=== PATIENT | female | born 1940 | race Caucasian/White ===

== ENCOUNTER 2017-09-16 12:00 | Emergency (ER) | payer OTHER, MEDICARE ==
[~2017-09-16] VITALS: Ht 162.6 cm; Wt 84.4 kg
[~2017-09-16 12:00] MED LIST: CALTRATE 600 +1 EACH PO; COLACE100 M1 PO; DAILY MULTIPLE1 EACH PO; ELIQUIS5 M1 PO; FENOFIBRATE160 M1 PO; HYDROCHLOROTHIA25 M1 PO; KRILL OIL 1,001 EAC1 PO; LIPOFEN150 M1 PO; LYRICA50 M1 PO; METOPROLOL TART25 M1 PO; OMEPRAZOLE40 M1 PO; SENNA8.6 M3 PO; SYNTHROID125 MCG PO; TAMIFLU30 M1 PO; VITAMIN B122500 MC1 PO; VITAMIN D2000 UNI1 PO
--- NOTE | 2017-09-16 12:31 | ED GI/GU/ABDOMINAL COMPLAINT ---
History of Present Illness General Chief Complaint: General Adult Stated Complaint: RECTAL BLEEDING Source: patient Exam Limitations: no limitations Vital Signs & Intake/Output Vital Signs & Intake/Output Vital Signs Date Time Temp Pulse Resp B/P B/P Pulse O2 O2 Flow FiO2 Mean Ox Delivery Rate 09/16 1217 96.5 71 18 141/77 97 Room Air Room Air Allergies Coded Allergies: NSAIDS (Non-Steroidal Anti-Inflamma (Severe, MUSCLE CRAMPS 12/10/15) STATINS (Severe, SEVERE MUSCLE CRAMPS 07/22/12) venlafaxine (Severe, TREMORS, FLUSHES, BLURRED VISION 01/02/16) levofloxacin (UNKNOWN 12/10/15) lovastatin (UNKNOWN 12/10/15) moxifloxacin (UNKNOWN 12/10/15) Reconcile Medications Alendronate Sodium 70 MG TABLET 1 TAB PO QSUN BONE (Reported) in the morning, at least 30 minutes before the first food, beverage, or medication of the day Apixaban (Eliquis) 5 MG TABLET 1 TAB PO BID HEART HEALTH (Reported) Fenofibrate 160 MG TABLET 1 TAB PO DAILY CHOLESTEROL (Reported) Hydrochlorothiazide 25 MG TABLET 1 TAB PO DAILY WATER PILL (Reported) Levothyroxine Sodium (Synthroid) 125 MCG TABLET 0.5 TAB PO DAILY AC THYROID ( Reported) Metoprolol Tartrate 25 MG TABLET 1 TAB PO BID HEART (Reported) Omeprazole 40 MG CAPSULE.DR 1 CAP PO DAILY GI (Reported) Sennosides (Senna) 8.6 MG TABLET 2 TAB PO QPM CONSTIPATION (Reported) Triage Note: PT TO ED WITH C/O RECTAL BLEEDING SINCE THIS AM, HAS HAD HEMMORRIODS IN THE PAST, STARTED MEDI WEIGHT LOSS 7 WEEKS AGO, "I DON'T HAVE A BM VERY OFTEN, TODAY THE STOOL WAS FORMED BROWN AND I COULD SEE SOME BLOOD IN IT". Triage Nurses Notes Reviewed? yes ? N Is pt currently ? No Onset: Abrupt Duration: day(s): (1) Timing: single episode today No Modifying Factors: none HPI: 77 year old female with history of afib on eliquis, h/o breast ca, duondenal ulcer many years ago presents to the ER for chief complaint of blood per rectum x 1 today. A few weeks ago she started a medi weight loss program which has caused her to be constipated. This AM she had a normal BM after a cammomile smoooth move tea and a had a normal BM. There was no pain or straining but she saw bright red blood mixed in with her stools. Stool was brown in color. Last colonoscopy 3 years ago and had polyps removed. Past History Travel History Traveled to [place] past 21 day No Medical History Any Pertinent Medical History? see below for history Neurological: NONE EENT: NONE Cardiovascular: AFIB, hypertension Respiratory: NONE Gastrointestinal: GERD, DUODENAL ULCER Hepatic: NONE Renal: NONE Musculoskeletal: chronic back pain, osteoarthritis Psychiatric: NONE Endocrine: hypothyroidism Blood Disorders: NONE Cancer(s): R BREAST CANCER Surgical History Surgical History: non-contributory Psychosocial History Who do you live with Spouse Services at Home NONE What is your primary language Ma[place] Tobacco Use: Never used ETOH Use: denies use Illicit Drug Use: denies illicit drug use Family History Hx Contributory? No Review of Systems Review of Systems Constitutional: Denies: chills, fever. EENTM: Reports: no symptoms. Respiratory: Denies: cough, short of breath. Cardiovascular: Denies: chest pain. GI: Reports: abdominal pain (chronic ruq pain), bloating, constipation. Genitourinary: Reports: no symptoms. Musculoskeletal: Reports: no symptoms. Skin: Reports: no symptoms. Neurological/Psychological: Reports: no symptoms. Hematologic/Endocrine: Reports: bleeding. Denies: bruising, polyuria, other. Immunologic/Allergic: Denies: splenectomy. All Other Systems: Reviewed and Negative Physical Exam Physical Exam General Appearance: well developed/nourished, alert, awake Head: atraumatic, normal appearance Eyes: Bilateral: normal appearance, PERRL, EOMI. Ears, Nose, Throat, Mouth: hearing grossly normal, moist mucous membrane Neck: normal inspection, supple, full range of motion Respiratory: normal breath sounds, chest non-tender, no respiratory distress Cardiovascular: regular rate/rhythm Gastrointestinal: normal bowel sounds, soft, non-tender Rectal: BROWN STOOL OB POSITIVE Core Measures ACS in differential dx? No Sepsis Present: No Sepsis Focused Exam Completed? No Progress Differential Diagnosis: colitis, ischemic colitis, hemorrhoid, rectal tear, diverticulosis, avm, mass Plan of Care: Orders Procedure Date/time Status MISTAKE 09/16 1319 Active PARTIAL THROMBOPLASTIN TIME 09/16 1251 Complete PROTHROMBIN TIME 09/16 1251 Complete COMPREHENSIVE METABOLIC PANEL 09/16 1251 Complete CBC WITHOUT DIFFERENTIAL 09/16 1251 Complete Laboratory Tests 09/16/17 1330: Anion Gap 11, Estimated GFR > 60, BUN/Creatinine Ratio 42.9 H, Glucose 94, Calcium 9.8, Total Bilirubin 0.6, AST 37 H, ALT 41, Alkaline Phosphatase 37, Total Protein 7.0, Albumin 4.1, Globulin 2.9, Albumin/Globulin Ratio 1.4, PT 16.4 H, INR 1.57 H, APTT 38 H, CBC w Diff NO MAN DIFF REQ, RBC 4.34, MCV 92.9 , MCH 30.8, RDW 14.1, MPV 8.4, Gran % 72.9, Lymphocytes % 17.2 L, Monocytes % 8.5, Eosinophils % 0.8, Basophils % 0.6, Absolute Granulocytes 5.9, Absolute Lymphocytes 1.4, Absolute Monocytes 0.7 H, Absolute Eosinophils 0.1, Absolute Basophils 0, PUBS MCHC 33.2 Patient had a normal, nonbloody BM while in the ED. Labs within normal limits. Patient given strict return precautions to return to the ED and will continue to monitor her stools. Initial ED EKG: none Departure Departure Time of Disposition: 1420 Disposition: HOME OR SELF CARE Condition: Stable Clinical Impression Primary Impression: Rectal bleeding Referrals: Nahed SKINNER,Suad Negrete MD,Smith Hou (PCP/Family) Additional Instructions: FOLLOW UP WITH DR ALONZO IN THE OFFICE CLEAR LIQUID DIET FOR THE NEXT 24-48 HRS AND ADVANCE YOUR DIET TOLERATED RETURN TO THE ER FOR ANY WORSENING BLEEDING, ABDOMINAL PAIN, LIGHTHEADEDNESS, DIZZINESS Departure Forms: Customer Survey General Discharge Information
[2017-09-16] MEDS ORDERED: ALENDRONATE SOD70 M2 PO (12:41)
[2017-09-16 13:34] LABS: ABSOLUTE BASOPHIL COUNT 0 /CUMM (0.0-0.2); ABSOLUTE EOSINOPHIL COUNT 0.1 /CUMM (0.0-0.7); ABSOLUTE GRANULOCYTE CT 5.9 /CUMM (1.4-6.5); ABSOLUTE LYMPH COUNT 1.4 /CUMM (1.2-3.4); ABSOLUTE MONOCYTE COUNT 0.7 /CUMM (0.10-0.60); BASOPHIL % 0.6 % (0.0-2.0); EOSINOPHIL % 0.8 % (0-5); GRANULOCYTE % 72.9 % (42.2-75.2); HEMATOCRIT 40.4 % (37-47); MEAN CORPUSCULAR HGB 30.8 PG (27.0-31.0); MEAN CORPUSCULAR HGB CONC 33.2 G/DL (33.0-37.0); MEAN CORPUSCULAR VOLUME 92.9 FL (81.0-99.0); MEAN PLATELET VOLUME 8.4 FL (7.4-10.4); PLATELET COUNT 298 /CUMM (130-400); RBC DISTRIBUTION WIDTH 14.1 % (11.5-14.5); RED BLOOD CELL CT 4.34 /CUMM (4.20-5.40)
[2017-09-16 13:44] LABS: PT 16.4 SEC (9.4-12.5); PTT 38 SEC (25-37)
[2017-09-16 14:22] VITALS: BP 1142/71
== END 2017-09-16 14:29 ==
LOC: ERH 12:00
PROVIDERS: Emergency Medicine
DX: K62.5 Hemorrhage of anus and rectum (principal)